=== PATIENT | male | born 1940 | race Caucasian/White ===

== ENCOUNTER 2025-02-09 11:28 | Outpatient (AMB) | payer MEDICARE, SELFPAY ==
--- NOTE | 2025-02-09 11:29 | A.OFFVIS_ITS ---
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 He was here with one daughter and was living with other daughter (Sandra). Memory was declining. He was more forgetful and it appeared as if he does not have an attention span, requiring things to be repeated multiple times. He would sometimes mix up the names of his daughters. He also started to shave facing the shower curtain instead of the mirror. Family wanted to know if medications could be increased. He was helping out around the house with easy chores. No falls. Mood was so-so, more easily irritable. Sleep was okay. [facility] Medical History (Updated 02/09/25 @ 11:36 by Annette Cedeno CNP) Prostate cancer Asthma GERD (gastroesophageal reflux disease) Leg cramps Depression Family History (Updated 02/09/25 @ 11:36 by Annette Cedeno CNP) Mother Dementia Review of Systems Const Denies chills, Denies daytime sleepiness, Denies difficulty sleeping, Denies fatigue, Denies fever(s), Denies frequent falls, Denies headache(s), Denies increased appetite, Denies poor appetite, Denies snoring, Denies weakness, Denies weight gain and Denies weight loss Eyes Denies loss of vision ENT Denies vertigo, Denies dizziness and Denies headache(s) Card Denies chest pain at rest, Denies chest pain with activity, Denies syncope, Denies leg edema and Denies palpitations Resp Denies snoring GI Denies constipation, Denies heartburn, Denies diarrhea and Denies nausea Denies urinary frequency, Denies urinary incontinence and Denies urinary urgency Musc Denies abnormal gait, Denies numbness and Denies tingling Skin/Breast Denies dry skin and Denies rash Neuro Denies abnormal gait, Denies vertigo, Denies dizziness, Denies syncope, Denies frequent falls, Denies headache(s), Denies lack of coordination, Denies loss of vision, Reports memory loss, Denies numbness, Denies restless legs, Denies seizure-like activity, Denies tingling, Denies paresthesias, Denies tremor(s) and Denies weakness Psych Denies anxiety, Denies depression, Denies auditory hallucinations, Reports memory loss, Denies visual hallucinations and Denies suicidal ideation Endo Denies fatigue and Denies palpitations Physical Exam Const Other: General Appearance:? normal, in no acute distress. Skin:? no rashes, no significant birthmarks. Heart:? S1, S2 normal, no murmurs. Lungs:? clear anteriorly and posteriorly. Extremities:? no edema. Psych:? alert, cooperative with exam. Neuro Other: Mental Status:?Alert and wake with noraml sp speech, fluency, and affect. He was unable to tell me his age or date of . He tells me he is here with his friend, and her name is Sandra (which is incorrect). Cranial Nerves:?L eye is laterally deviated, but he is able to bring it to the other side. Pupils are equal, round and reactive to light. Visual crystal are full. Face is symmetrical. Facial sensations are normal. Tongue is midline. Palate elevates symmetrically. Shoulder shrugging is normal. Hearing to bedside conversation is decreased. Coordination:?No ataxia,?no titubation.? Gait Exam: Within normal limits. Extrapyramidal System:?No tremor, rigidity with normal facial expressions.? Pronator Drift:?Not present.? Involuntary Movements:?No tremors seen.? Speech:?Normal.? Assessment & Plan Assessment & Plan (1) Alzheimer dementia: Code(s): G30.9 - Alzheimer's disease, unspecified; F02.80 - Dementia in other diseases classified elsewhere, unspecified severity, without behavioral disturbance, psychotic disturbance, mood disturbance, and anxiety Category: Medical Qualifiers: Alzheimer's disease onset: unspecified onset Dementia severity: unspecified severity Dementia behavioral or psychological symptom: unspecified whether behavioral, psychotic, or mood disturbance or anxiety Qualified Code(s): G30.9 - Alzheimer's disease, unspecified; F02.80 - Dementia in other diseases classified elsewhere, unspecified severity, without behavioral disturbance, psychotic disturbance, mood disturbance, and anxiety Plan: 84-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 They were educated about this condition, its treatment, and prognosis. Continue donepezil 10mg 1 tablet at bedtime. Continue memantine 10mg 1 tablet twice a day. Start sertraline 25mg 1 tablet daily, use/side effects reviewed. (2) Unspecified dementia, unspecified severity, with other behavioral disturbance: Code(s): F03.918 - Unspecified dementia, unspecified severity, with other behavioral disturbance Category: Medical Plan . Medications: New memantine 10 mg PO BID 180 tabs 1RF 90 days sertraline 25 mg PO DAILY 30 tabs 2RF 30 days donepezil 10 mg PO DAILY 90 tabs 1RF 90 days Coding Level of Care Code Est Pt Level 4 (98436) Diagnoses Alzheimer's dementia, unspecified dementia severity, unspecified timing of dementia onset, unspecified whether behavioral, psychotic, or mood disturbance or anxiety G30.9; F02.80 Alzheimer's disease onset: unspecified onset Dementia severity: unspecified severity Dementia behavioral or psychological symptom: unspecified whether behavioral, psychotic, or mood disturbance or anxiety Unspecified dementia, unspecified severity, with other behavioral disturbance F03.918
--- OUTSIDE RECORDS SUMMARY | 2025-02-09 14:35 | XMS_ITS | Clinical Summary ---
Author Organization [facility] [address] [place] [address] [place] [phone] Phone Care Team Providers Care Assistive Technology Specialist Name Role Phone Ernesto Patel MD Primary Care Provider [phone] Allergies Active Allergy Reactions Criticality Noted Date Comments Atorvastatin Calcium 05/09/2005 leg cramps Iodinated Contrast Media Nausea And Vomiting Medications albuterol HFA (PROAIR HFA ; PROVENTIL HFA ; VENTOLIN HFA) 90 mcg/actuation inhaler Inhale 2 Puffs into the lungs 4 times daily as needed for Cough or Wheezing. 06/13/2023 Active donepeziL (ARICEPT) 10 mg tablet Take 1 tablet (10 mg total) by mouth at bedtime. 11/22/2020 Active memantine (NAMENDA) 10 mg tablet Take 10 mg by mouth 2 times daily. Active pravastatin (PRAVACHOL) 40 mg tablet TAKE 1 TABLET BY MOUTH EVERY DAY 90 tablet 12/17/2024 Active Active Problems Problem Noted Date Diagnosed Date Moderate dementia without be havioral disturbance, psychotic disturbance, mood disturbance, or anxiety ([facility] V24, [facility] V28) 06/13/2023 Unintentional weight loss 01/04/2021 Smoking 05/01/2016 Chest pain 01/27/2014 Overview (04/19/2024): Negative stress test Chronic obstructive pulmonar y disease (CMS/HCC V24, CMS/[facility] V28) 11/22/2008 Thyroid nodule 11/21/2008 Overview (04/19/2024): Aspirate negative for malignant cells, 11/15/2008 Pulmonary nodules 04/07/2008 Overview (04/19/2024): Multiple small pulmonary nodules, CT scan 04/02/2008 Anxiety state 05/09/2005 Esophageal reflux 05/09/2005 Hyperlipidemia 05/09/2005 Encounters Date Type Department Care Team Description 12/21/2024 3:45 PM EDT Office Visit [facility] [address] [phone] Ernesto Patel MD Moderate dementia without behavioral disturbance, psychotic disturbance, mood disturbance, or anxiety, unspecified dementia type (CMS/[facility] V24, CMS/[facility] V28) (Primary Dx); Pure hypercholesterolemia from Last 3 Months Immunizations Name Administration Dates Next Due H1N1 Inj Preservative Free 05/29/2009 Influenza Quadravalent, MDCK , 0.5ml, preservative free (Flucelvax) 6mo and older 06/13/2023 Influenza trivalent, 0.5mL ( Fluad) 65yo and older 01/20/2019,01/24/2017 Influenza trivalent, 0.5mL, preservative free (Fluarix; FluLaval; Fluzone) ages 6mo and older (Afluria) 3 years and older 05/01/2016,04/08/2012,01/25/2011,03/27,02/14/2009,03/31/2008,02/21/2007 ,04/04/2006,02/14/2005 BitLeap SARS-CoV-2 COVID-19, mRNA, LNP-S, preservative free 09/09/2020 Pneumococcal conjugate 13 va lent (Prevnar 13, PCV13) 2mo and older 08/21/2015 Pneumococcal polysaccharide 23 valent (Pneumovax 23) 2yo and older 04/01/2007 Td Tetanus diptheria (Tdvax) 7yo and older 08/30/2011 Surgical History Surgery Date Site/Laterality Comments OTHER SURGICAL HISTORY PROCEDURE: ---- OTHER ----; COMMENT: right elbow surgery OTHER SURGICAL HISTORY PROCEDURE: MO DISPLACEMENT THERAPY PROETZ TYPE; COMMENT: SINUS SURGERY COLONOSCOPY 01/27/14 PROCEDURE: HISTORICAL COLONOSCOPY; COMMENT: adenomas, hemorrhoids, radiation proctitis and tics; would not repeat APPENDECTOMY PROCEDURE: MO APPENDECTOMY Medical History Medical History Date Comments Anxiety state, unspecified DX:An xiety state, unspecified Esophageal reflux DX:Esophageal reflux Personal history of colonic polyps DX:Personal history of colonic polyps Thyroid nodule 11/21/2008 DX:Thyroid nodul e; COMMENT: Aspirate negative for malignant cells, 11/15/2008 Historical Medical DX 04/07/2008 DX:Pulmona ry nodule; COMMENT: Multiple small pulmonary nodules, CT scan 04/02/2008, 6 month follow up recommended. Other and unspecified hyperlipidemia 05/09/2005 DX:Other and unspecified hyperlipidemia Chronic obstructive pulmonar y disease (CMS/HCC V24, CMS/HCC V28) 11/22/2008 DX:Chronic obstructive pulm onary disease (HCC) Chest pain 01/27/2014 DX:Chest pain Abnormal cardiovascular stress test 01/27/2014 DX:Abnormal cardiovascular stress test H/O prostate cancer 09/13/2009 DX:H/O prost ate cancer; COMMENT: Diagnosed 08/2009, had rtx Family History Medical History Relation Name Comments Prostate cancer Father Other cancer Mother melanoma, age 95 Relation Name Status Comments Father Mother Social History Tobacco Use Types Packs/Day Years Used Date Smoking Tobacco: Every Day Cigarettes 0.5 70.7 Started: 05/19/1956 Smokeless Tobacco: Never Tobacco Cessation:Ready to Q uit: Not Asked; Counseling Given: Not Answered Alcohol Use Standard Drinks/Week Comments Not Currently 0 (1 standard drink = 0.6 oz pur e alcohol) Sex and Gender Information Value Date Recorded Sex Assigned at Not on file Legal Sex Male 1:23 AM EST Gender Identity Not on file Sexual Orientation Not on file Obstetrics History Last Filed Vital Signs Vital Sign Reading Time Taken Comments Blood Pressure 110/60 12/21/2024 3:36 PM EDT Pulse 76 12/21/2024 3:36 PM EDT Temperature 36.6 C (97.8 F) 12/21/2024 3:36 PM EDT Respiratory Rate 14 12/21/2024 3:36 PM EDT Oxygen Saturation 98% 12/21/2024 3:36 PM EDT Inhaled Oxygen Concentration - - Weight 58.8 kg (129 lb 9.6 oz) 12/21/2024 3:36 P M EDT Height 170.2 cm (5' 7 ) 12/21/2024 3:36 PM EDT Body Mass Index 20.3 12/21/2024 3:36 PM EDT Plan of Treatment Upcoming Encounters Date Type Department Care Team (Late st Contact Info) Description 07/14/2025 11:30 AM EST Office Visit Adult Medicine [facility] [address] [place] [phone] Ernesto Patel MD [address] [place] [address] Health Maintenance Due Date Last Done Comments Zoster Vaccines (1 of 2) 1988 RSV Immunization Adult Patients (1 - 1-dose 75+ series) 2013 Social Influencers of Health Screening 04/27/2022 COVID-19 Vaccine ( - season) 2025 05/21/2022, 09/30/2020, 09/09/2020 Influenza Vaccine (#1) 2025 , 05/21/2022, 01/20/2019, Additional history exists Falls Risk Assessment 06/22/2025 06/22/2024 Medicare Annual Wellness Visit 06/22/2025 06/22/2024 Cholesterol Screening (Lipid Panel) 08/09/2029 08/09/2024, 12/23/2023, 12/23/2023 DTaP,Tdap,and Td Vaccines (3 - Td or Tdap) 05/21/2032 05/21/2022, 08/30/2011 Pneumococcal Vaccine: 50+ Years Completed 08/21/2015, 04/01/2007 Depression Screening Completed 06/22/2024 HIB Vaccines Aged Out No longer eligi ble based on patient's age to complete this topic HPV Vaccines Aged Out No longer eligi ble based on patient's age to complete this topic Hepatitis A Vaccines Aged Out No long er eligible based on patient's age to complete this topic Hepatitis B Vaccines Aged Out No long er eligible based on patient's age to complete this topic IPV Vaccines Aged Out No longer eligi ble based on patient's age to complete this topic MMR Vaccines Aged Out No longer eligi ble based on patient's age to complete this topic Meningococcal ACWY Vaccine Aged Out N o longer eligible based on patient's age to complete this topic Meningococcal B Vaccine Aged Out No l onger eligible based on patient's age to complete this topic RSV Immunization Patients Under 20 months Aged Out No longer eligible based on patient's age to complete this topic Varicella Vaccines Aged Out No longer eligible based on patient's age to complete this topic Procedures Procedure Name Priority Date/Time Associated Diagnosis Comments LIPID PANEL WITH REFLEX TO DIRECT LDL Routine 08/09/2024 9:29 AM EDT Pure hypercholesterolemia from Last 3 Months or Most Recently Relevant to Health Maintenance Results * (ABNORMAL) Lipid panel with reflex to direct LDL (08/09/2024 9:29 AM EDT) Cholesterol 202(H) 0 - 200 mg/dL LAB CHEMISTRY METHOD 08/09/2024 1:38 PM EDT [facility] Triglycerides 233(H) 0 - 150 mg/dL LAB CHEMISTRY METHOD 08/09/2024 1:38 PM EDT [facility] HDL 66 >=40 mg/dL LAB CHEMISTRY METHOD 08/09/2024 1:38 PM EDT [facility] LDL Calculated 89 0 - 100 mg/dL LAB CHEMISTRY METHOD 08/09/2024 1:38 PM [facility] VLDL Cholesterol Gilberto 46.6 mg/dL LAB CHEMISTRY METHOD 08/09/2024 1:38 PM EDT [facility] Non HDL Chol. (LDL+VLDL) 136 <145 mg/dL LAB CHEMISTRY METHOD 08/09/2024 1:38 PM EDT [facility] Chol/HDL Ratio 3.1 0.0 - 4.4 LAB CHEMISTRY METHOD 08/09/2024 1:38 PM [facility] Blood Venous blood specimen / Unknown Venipuncture / Unknown 08/09/2024 9:29 AM EDT 08/09/2024 9:29 AM EDT us Ernesto Patel MD LAB BLOOD ORDERABLES Final Resu lt [facility] [address] [place] [address], from Last 3 Months or Most Recently Relevant to Health Maintenance Insurance [employer] Care Teams Assistive Technology Specialist Relationship Specialty Start Date End Date Ernesto Patel MD [address] [place] [phone] PCP - General Internal Medicine 12/13/20
--- OUTSIDE RECORDS SUMMARY | 2025-02-09 14:35 | XMS_ITS ---
Author Name [facility] Organization Unknown Care Team Organization Name Specialty Phone Email Start Date End Da blanca [facility] 03/26/20222023
== END 2025-02-09 11:59 | disposition home or self-care (01) ==
LOC: HO.HSM 11:28
PROVIDERS: PCP Internal Medicine; Referring Provider Internal Medicine; Visit Provider Registered Nurse
DX: G30.9 Alzheimer's disease, unspecified (principal); F02.80 Dementia in other diseases classified elsewhere, unspecified severity, without behavioral disturbance, psychotic disturbance, mood disturbance, and anxiety; F03.918 Unspecified dementia, unspecified severity, with other behavioral disturbance
CPT/HCPCS: 99214

== ENCOUNTER → 2025-02-09 11:28 | Outpatient (BNVA) | payer MEDICARE, SELFPAY | PROVIDERS: PCP Internal Medicine; Referring Provider Internal Medicine; Visit Provider Registered Nurse | DX: G30.9 Alzheimer's disease, unspecified (principal); F02.80 Dementia in other diseases classified elsewhere, unspecified severity, without behavioral disturbance, psychotic disturbance, mood disturbance, and anxiety | CPT/HCPCS: 99212 ==

== ENCOUNTER 2025-03-10 10:29 | Outpatient (AMB) | payer MEDICARE, SELFPAY ==
--- NOTE | 2025-03-10 10:30 | AM.OFFWIN_ITS ---
Intake Vital Signs 03/10/25 10:33 Height 5 ft 3.5 in Weight 130 lb BMI 22.7 BP 118/62 Blood Pressure Location Rt brachial Position Sitting Pulse 60 Pulse Source Palpation Temp 97.6 F Temp Source Oral Intake Visit Reasons: EP Right side pain from right upper hip/pt fell Intake Note: Patient presents with left mid/low back pain caused by a fall at a wedding on friday Allergies atorvastatin (From LIPITOR) Allergy (Unknown, Unverified 03/10/25 10:36) VOMIT Iodinated Contrast Media (IV CONTRAST) Allergy (Unknown, Unverified 03/10/25 10:36) UNKNOWN Medication List - Last Reconciled 03/10/25 by Shaunna Whatley MD donepezil 10 mg PO DAILY 90 days memantine 10 mg PO BID 90 days pravastatin 40 mg PO DAILY sertraline 25 mg PO DAILY 30 days Do you need a note to return to daycare/school/sports/work: No HPI HPI Comments History of Present Illness Details Patient was informed and verbally consented to the use of an ambient scribe for clinic note documentation during the visit. History of Present Illness The patient is an 84-year-old male presenting with his daughter for back pain and a history of fall Fall-related back pain - The patient fell five days ago on a night while dancing at a wedding. - Reports pain in the left lower back si nce the incident. - Pain exacerbates upon movement. - Denied any visible bruising. - Bxkw-nvh-jeylzda medications such as a cetaminophen and ibuprofen have not alleviated the pain. - The patient confirmed minimal head imp act during the fall. No LOC or blood thinners - Denied persistent headache or dizzines s following the trauma. Review of Systems - Neurological: Denies dizziness and hea daches. - Musculoskeletal: Reports back pain; De nies pain along the spine. Denies trouble ambulating - Renal/Urinary: Denies blood in urine. Physical Exam General Appearance: Normal appearance, well developed. Head: Normocephalic, atraumatic Pulmonary: No respiratory distress. Speaking in full sentences Musculoskeletal: Tenderness in the left mid back, No TTP along the spine. Moving all extremities spontaneously and against gravity Mental Status: Alert and Oriented x 3 Psychiatric: Normal mood. Normal affect. [facility] Medical History (Updated 02/09/25 @ 11:36 by Annette Cedeno CNP) Prostate cancer Asthma GERD (gastroesophageal reflux disease) Leg cramps Depression Family History (Updated 02/09/25 @ 11:36 by Annette Cedeno CNP) Mother Dementia Physical Exam Vital Signs: Last Vital Signs Temp 97.6 F 03/10/25 10:33 Pulse 60 03/10/25 10:33 BP 118/62 03/10/25 10:33 BMI result Body Mass Index 22.7 Results AMB Urinalysis, Automated UA Leukoctes 0 Misha/uL Last Edit by Charo Emanuel, RILEY on 03/10/25 11:05 UA Nitrite Negative Last Edit by Charo Emanuel, RESTORATION TECHNICIAN on 03/10/25 11:05 UA Urobilinogen 0.2 mg/dL Last Edit by Charo Emanuel, RILEY on 03/10/25 11: 05 UA Protein 15 mg/dL Last Edit by Charo Emanuel, RESTORATION TECHNICIAN on 03/10/25 11:05 UA pH 6.0 Last Edit by Charo Emanuel, RESTORATION TECHNICIAN on 03/10/25 11:05 UA Blood 0 Ubaldo/uL Last Edit by Charo Emanuel, RESTORATION TECHNICIAN on 03/10/25 11:05 UA Specific Dodson 1.020 Last Edit by Charo Emanuel, RILEY on 03/10/25 11 :05 UA Ketone Negative Last Edit by Charo Emanuel, RILEY on 03/10/25 11:05 UA Bilirubin 0 mg/dL Last Edit by Charo Emanuel, RILEY on 03/10/25 11:05 UA Glucose 0 mg/dL Last Edit by Charo Emanuel, RILEY on 03/10/25 11:05 Results Reviewed Results Reviewed: Laboratory Last Values Urine pH (Auto) 6.0 03/10/25 10:58 Specific Dodson (Auto) 1.020 03/10/25 10:58 Urine Protein (Auto) 15 mg/dL 03/10/25 10:58 Glucose (UA)(Auto) 0 mg/dL 03/10/25 10:58 Urine Ketones (Auto) Negative 03/10/25 10:58 Urine Blood (Auto) 0 Ubaldo/uL 03/10/25 10:58 Urine Nitrite (Auto) Negative 03/10/25 10:58 Urine Bilirubin (Auto) 0 mg/dL 03/10/25 10:58 Urine Urobilinogen (Auto) 0.2 mg/dL 03/10/25 10:58 Leukocyte Esterase (Auto) 0 Misha/uL 03/10/25 10:58 Assessment & Plan Assessment & Plan (1) Mid back pain on left side: Code(s): M54.9 - Dorsalgia, unspecified Plan Assessment and Plan 1. Left back pain - Patient noted to have TTP overlying the left mid back - UA was negative for blood in the urine. - I suspect musculoskeletal pain given the incident and location. - UA in office shows protein. Patient unaware if any history of reduced kidney function and unable to view any recent lab work. I recommend alternating Voltaren gel and lidocaine patches for topical relief along with tylenol, to be used with heat application intermittently for muscle relaxation. Advised to summer id using lidocaine patches and heat together to prevent sanchez. Orders: Orders AMB Urinalysis Automated Today M54.9 - Dorsalgia, unspecified Medications: New lidocaine 5% leave on most painful area for up to 12 hrs 1 patch topical DAILY PRN 15 ea 0RF pain diclofenac sodium 1% (Voltaren Arthritis Pain) apply to back as needed 2 grams topical TID PRN 50 grams 0RF pain Coding Level of Care Code New Pt Level 3 (53999) Diagnoses Mid back pain on left side M54.9
[2025-03-10 10:33] VITALS: BP 118/62; PULSE 60; TEMP 36.4; BMI 22.7
--- OUTSIDE RECORDS SUMMARY | 2025-03-10 12:37 | XMS_ITS | Clinical Summary ---
Author Organization [facility] [address] [place] [address] [place] [phone] Phone Care Team Providers Care Pastry Cook Name Role Phone Ernesto Patel MD Primary Care Provider [phone] Allergies Active Allergy Reactions Criticality Noted Date [...] disturbance, psychotic disturbance, mood disturbance, or anxiety ([facility] V24, [facility] V28) 06/13/2023 Unintentional weight loss 01/04/2021 Smoking 05/01/2016 Chest pain 01/27/2014 Overview (04/19/2024): Negative stress test Chronic obstructive pulmonar y disease (CMS/HCC V24, [facility] V28) 11/22/2008 Thyroid nodule 11/21/2008 Overview (04/19/2024): Aspirate negative for malignant cells, 11/15/2008 Pulmonary nodules 04/07/2008 Overview (04/19/2024): Multiple small pulmonary nodules, CT scan 04/02/2008 Anxiety state 05/09/2005 Esophageal reflux 05/09/2005 Hyperlipidemia 05/09/2005 Encounters Date Type Department Care Team Description 12/21/2024 3:45 PM EDT Office Visit [facility] [address] [phone] Ernesto Patel MD Moderate dementia without behavioral disturbance, psychotic disturbance, mood disturbance, or anxiety, unspecified dementia type ([facility] V24, [facility] V28) (Primary Dx); Pure hypercholesterolemia from Last 3 Months Immunizations Immunization Administration Dates Next Due H1N1 Inj Preservative Free 05/29/2009 Influenza Quadravalent, MDCK , 0.5ml, preservative free (Flucelvax) 6mo and older 06/13/2023 Influenza trivalent, 0.5mL ( Fluad) 65yo and older 01/20/2019,01/24/2017 Influenza trivalent, 0.5mL, preservative free (Fluarix; FluLaval; Fluzone) ages 6mo and older (Afluria) 3 years and older 05/01/2016,04/08/2012,01/25/2011,03/27,02/14/2009,03/31/2008,02/21/2007 ,04/04/2006,02/14/2005 InstallMonetizer SARS-CoV-2 COVID-19, mRNA, LNP-S, preservative free 09/09/2020 Pneumococcal conjugate 13 va lent (Prevnar 13, PCV13) 2mo and older 08/21/2015 Pneumococcal polysaccharide 23 valent (Pneumovax 23) 2yo and older 04/01/2007 Td Tetanus diptheria (Tdvax) 7yo and older 08/30/2011 Surgical History Surgery Date Site/Laterality Comments OTHER SURGICAL HISTORY PROCEDURE: ---- OTHER ----; COMMENT: right elbow surgery OTHER SURGICAL HISTORY PROCEDURE: [facility] DISPLACEMENT THERAPY PROETZ TYPE; COMMENT: SINUS SURGERY COLONOSCOPY 01/27/14 PROCEDURE: HISTORICAL COLONOSCOPY; COMMENT: adenomas, hemorrhoids, radiation proctitis and tics; would not repeat APPENDECTOMY PROCEDURE: [facility] APPENDECTOMY Medical History Medical History Date Comments [...] Date Smoking Tobacco: Every Day Cigarettes 0.5 70.8 Started: 05/19/1956 Smokeless Tobacco: Never Tobacco Cessation:Ready [...] 11:30 AM EST Office Visit Adult [facility] [address] [place] [phone] Ernesto Patel MD [address] [place] [address] Health Maintenance Due Date Last Done Comments [...] LAB CHEMISTRY METHOD 08/09/2024 1:[address] [facility] Triglycerides 233(H) 0 - 150 mg/dL LAB CHEMISTRY METHOD 08/09/2024 1:[address] [facility] HDL 66 >=40 mg/dL LAB CHEMISTRY METHOD 08/09/2024 1:[address] [facility] LDL Calculated 89 0 - 100 mg/dL LAB CHEMISTRY METHOD 08/09/2024 1:38 PM [facility] VLDL Cholesterol Gilberto 46.6 mg/dL LAB CHEMISTRY METHOD 08/09/2024 1:[address] [facility] Non HDL Chol. (LDL+VLDL) 136 <145 mg/dL LAB CHEMISTRY METHOD 08/09/2024 1:[address] [facility] Chol/HDL Ratio 3.1 0.0 - 4.4 LAB CHEMISTRY METHOD 08/09/2024 1:38 PM [facility] Blood Venous blood specimen / Unknown Venipuncture / Unknown 08/09/2024 9:29 AM EDT 08/09/2024 9:29 AM EDT us Ernesto Patel MD LAB BLOOD ORDERABLES Final Resu lt [facility] [address] [place] [address], from Last 3 Months or Most Recently Relevant to Health Maintenance Insurance [employer] Care Teams Pastry Cook Relationship Specialty Start Date End Date Ernesto Patel MD [address] [place] [phone] PCP - General Internal Medicine 12/13/20
== END 2025-03-10 11:40 | disposition home or self-care (01) ==
PROVIDERS: PCP Internal Medicine; Visit Provider Family Medicine
DX: M54.9 Dorsalgia, unspecified (principal)
CPT/HCPCS: 99203

== ENCOUNTER → 2025-03-10 10:29 | Outpatient (BNVA) | payer MEDICARE, SELFPAY | PROVIDERS: PCP Internal Medicine; Visit Provider Family Medicine | DX: K21.9 Gastro-esophageal reflux disease without esophagitis (principal); M54.9 Dorsalgia, unspecified; Z91.81 History of falling | CPT/HCPCS: 81003; 99202 ==